=== PATIENT | male | born 1955 | race Hispanic/Latino ===

== ENCOUNTER 2023-02-24 10:45 | Emergency (ER) | payer MEDICARE ==
--- NOTE | 2023-02-24 11:46 | RAD REPORT ---
EXAM DESCRIPTION: RAD - Ankle Left 3 View - 02/24/2023 11:15 am CLINICAL HISTORY: SWELLING COMPARISON: No comparisons TECHNIQUE: Left ankle, 3 views. FINDINGS: No fracture, dislocation or periosteal reaction. No joint effusion seen. Small calcaneal s pur. Vascular calcifications. No joint space narrowing. Linear densities along the plantar aspect of the hindfoot, may relate to mineralization along the plantar aponeurosis or deep muscles of the foot. . IMPRESSION: No acute osseous abnormality. Chronic findings as above.
--- NOTE | 2023-02-24 12:09 | ER ---
Nurse's Notes [facility] Name: Cristopher Mccann Age: 67 yrs Sex: Male : 1955 Arrival Date: 02/24/2023 Time: 10:45 Bed 5 Private MD: Diagnosis: Gout, unspecified Presentation: 02/24 10:53 Chief complaint: Patient states: Left ankle pain since Tuesday morning, getting worse. nj1 Denies injury. Able to put weight on it but painful. Has tried advil on Tuesday with no relief. Call PCP, has appointment tomorrow. Coronavirus screen: Vaccine status: Patient reports receiving the 2nd dose of the covid vaccine. Ebola Screen: Patient denies travel to an Ebola-affected area in the 21 days before illness onset. Initial Sepsis Screen: Does the patient meet any 2 criteria? No. Patient's initial sepsis screen is negative. Does the patient have a suspected source of infection? No. Patient's initial sepsis screen is negative. Risk Assessment: Do you want to hurt yourself or someone else? Patient reports no desire to harm self or others. Onset of symptoms was February 21, 2023. 10:53 Method Of Arrival: Ambulatory [facility] [place] 10:53 Acuity: IRINA 3 nj1 Historical: - Allergies: 10:56 No Known Allergies; nj1 - Home Meds: 14:53 tamsulosin 0.4 mg oral capsule 1 cap daily [Active]; tacrolimus 1 mg oral capsule 1 cap nj1 every 12 hours [Active]; gabapentin 600 mg oral tablet 1 tab every 8 hours [Active]; desvenlafaxine 100 mg oral Tablet, Extended Release 24 hr 1 tab daily [Active]; aspirin 81 mg Oral tablet, delayed release (enteric coated) 1 tab daily [Active]; nifedipine 60 mg Oral tablet, extended release 1 tab daily [Active]; - PMHx: 10:56 depressive disorder; Hypertensive disorder; nj1 - PSHx: 10:56 liver transplant; nj1 - Immunization history:: Client reports receiving the 2nd dose of the Covid vaccine. - Social history:: Smoking status: Patient reports the use of cigarette tobacco products, smokes one-half pack cigarettes per day. Screenin:15 [facility] ED Fall Risk Assessment (Adult) History of falling in the last 3 months, ko1 including since admission No falls in past 3 months (0 pts) Confusion or Disorientation No (0 pts) Intoxicated or Sedated No (0 pts) Impaired Gait No (0 pts) Mobility Assist Device Used No (0 pt) Altered Elimination No (0 pt) Score/Fall Risk Level 0 - 2 = Low Risk Oriented to surroundings, Maintained a safe environment, Educated pt \T\ family on fall prevention, incl call for assistance when getting out of bed, Assessed \T\ reinforced patient's understanding of fall precautions, Provided non-skid footwear, Hourly rounding (assess needs \T\ fall precautionary measures) done, Used ambulatory aids as needed (educated on \T\ assisted with), Used gait belt as appropriate. Abuse screen: Denies threats or abuse. Denies injuries from another. Nutritional screening: No deficits noted. Tuberculosis screening: No symptoms or risk factors identified. Assessment: 11:05 General: Appears in no apparent distress. Behavior is calm, cooperative, appropriate ko1 for age. Pain: Pain: Complains of pain in left ankle. 11:15 Musculoskeletal: Reports pain in left ankle. ko1 Vital Signs: 10:53 BP 120 / 77; Pulse 86; Resp 16; Temp 98.1(O); Pulse Ox 100% ; Weight 86.18 kg; Height 5 nj1 ft. 6 in. ; Pain 10/10; 11:12 BP 134 / 85; Pulse 82; Resp 18; Temp 98.2; Pulse Ox 100% ; Weight 83.91 kg; Height 5 ls5 ft. 6 in. ; Pain 10/10; 12:08 BP 130 / 82; Pulse 78; Resp 15; Pulse Ox 99% ; ko1 11:12 Body Mass Index 29.86 (83.91 kg, 167.64 cm) ls5 10:53 Pain Scale: Adult nj1 11:12 Pain Scale: Adult ls5 ED Course: 10:48 Patient arrived in ED. mg5 10:50 Miguel Gonzales MD is Attending Physician. ec2 10:56 Triage completed. nj1 11:00 Arm band placed on right wrist. nj1 11:07 Ciera Harrell, TAMERA is Primary Nurse. ko1 11:15 Patient has correct armband on for positive identification. Bed in low position. Call ko1 light in reach. Provided Education on: na. Pulse ox on. NIBP on. Door closed. Noise minimized. Warm blanket given. 11:17 Ankle Left 3 View XRAY In Process Unspecified. EDMS 12:08 No provider procedures requiring assistance completed. Patient did not have IV access ko1 during this emergency room visit. Administered Medications: No medications were administered Medication: 12:08 VIS not applicable for this client. ko1 Outcome: 12:08 Discharge ordered by . ec2 12:17 Discharged to home via wheelchair, ko1 12:17 Condition: stable 12:17 Discharge instructions given to patient, Instructed on discharge instructions, follow up and referral plans. medication usage, Demonstrated understanding of instructions, follow-up care, medications, Prescriptions given X 1, 12:17 Patient left the ED. ko1 Signatures: Dispatcher [employer] EDCiera Calvert RN RN ko1 Anthony Das ls5 Charisse Mcguire RN RN nj1 Anna Mackay mg5 Miguel Gonzales MD MD ec2 Corrections: (The following items were deleted from the chart) 11:15 11:05 Pain: ko1 ko1
--- NOTE | 2023-02-24 12:09 | EDPHYS ---
Physician Documentation [facility] Name: Cristopher Mccann Age: 67 yrs Sex: Male : 1955 Arrival Date: 02/24/2023 Time: 10:45 Bed 5 Private MD: ED Physician Miguel Gonzales HPI: 02/24 11:05 This 67 yrs old Male presents to ER via Ambulatory with complaints of Ankle ec2 Swelling. 11:05 Patient arrives today for evaluation of left of ankle pain. States that he is having ec2 swelling and pain ongoing for the past 4 to 5 days. States that he has no fevers or chills, no nausea or vomiting, no falls or injuries or trauma. States he has had previous similar symptoms in the past, states that it has been in the left ankle in the past as well as the right ankle as well as other areas. Patient reports he has never been diagnosed with any specific problems, states that they typically resolve on its own. States he has been taking some Advil with some improvement in his symptoms.. Historical: - Allergies: 10:56 No Known Allergies; nj1 - Home Meds: 14:53 tamsulosin 0.4 mg oral capsule 1 cap daily [Active]; tacrolimus 1 mg oral capsule 1 cap nj1 every 12 hours [Active]; gabapentin 600 mg oral tablet 1 tab every 8 hours [Active]; desvenlafaxine 100 mg oral Tablet, Extended Release 24 hr 1 tab daily [Active]; aspirin 81 mg Oral tablet, delayed release (enteric coated) 1 tab daily [Active]; nifedipine 60 mg Oral tablet, extended release 1 tab daily [Active]; - PMHx: 10:56 depressive disorder; Hypertensive disorder; nj1 - PSHx: 10:56 liver transplant; nj1 - Immunization history:: Client reports receiving the 2nd dose of the Covid vaccine. - Social history:: Smoking status: Patient reports the use of cigarette tobacco products, smokes one-half pack cigarettes per day. ROS: 11:05 Constitutional: as per hpi ec2 Exam: 11:05 Constitutional: GEN: NAD Head: atraumatic Eyes: EOMI Ears: External ears are ec2 normal. CV: regular rate LUNGS: no respiratory distress ABD: non-distended SKIN: no evidence of rashes MSK: Left ankle with trace effusion noted, no erythema, no warmth, pain with range of motion, intact distal neurovascular status noted. No calf swelling. NEURO: moves all extremities equally Vital Signs: 10:53 BP 120 / 77; Pulse 86; Resp 16; Temp 98.1(O); Pulse Ox 100% ; Weight 86.18 kg; Height 5 nj1 ft. 6 in. ; Pain 10/10; 11:12 BP 134 / 85; Pulse 82; Resp 18; Temp 98.2; Pulse Ox 100% ; Weight 83.91 kg; Height 5 ls5 ft. 6 in. ; Pain 10/10; 12:08 BP 130 / 82; Pulse 78; Resp 15; Pulse Ox 99% ; ko1 11:12 Body Mass Index 29.86 (83.91 kg, 167.64 cm) ls5 10:53 Pain Scale: Adult nj1 11:12 Pain Scale: Adult ls5 MDM: 11:05 Patient medically screened. ec2 11:05 Data reviewed: vital signs. ED course: Patient arrives today for left ankle pain and ec2 swelling. Examination remarkable for ankle findings as noted above. Will obtain an x-ray to further assess the patient's complaint. Currently considering process such as malignancy, bony injury such as fracture, low suspicion for DVT given localized symptoms, additionally considering gout/arthritis Which I have a higher clinical index of suspicion for. . 12:03 ED course: Ankle x-ray shows no acute process. Will treat presumptively for gout, I do ec2 not feel there is a large enough effusion to tap. Patient without systemic symptoms, low index suspicion for septic joint. . 02/24 11:05 Order name: Ankle Left 3 View XRAY; Complete Time: 12:02 ec2 Administered Medications: No medications were administered Disposition Summary: 02/24/23 12:08 Discharge Ordered Notes: Location: Home ec2 Condition: Stable ec2 Diagnosis - Gout, unspecified ec2 Followup: ec2 - With: Private Physician - When: - Reason: Recheck today's complaints, Re-evaluation by your physician Discharge Instructions: - Discharge Summary Sheet ec2 - Gout, [id number] ec2 Forms: - Medication Reconciliation Form ec2 - Thank You Letter ec2 - Antibiotic Education ec2 - Prescription Opioid Use ec2 - Patient Portal Instructions ec2 - Leadership Thank You Letter ec2 Prescriptions: - indomethacin 50 mg Oral capsule - take 1 capsule ORAL route 3 times per day for 5 days administer with food or ec2 milk; 15 capsule; Refills: 0, Product Selection Permitted Signatures: Dispatcher [employer] Charisse Hernandez RN RN nj1 Miguel Gonzales MD MD ec2
[2023-02-24 12:30] VITALS: BP 130/82; TEMP 98.2; O2SAT 99
== END 2023-02-24 12:17 | disposition home or self-care (01) ==
LOC: ER 10:45
DX: M10.9 Gout, unspecified (principal)
CPT/HCPCS: 99283

== ENCOUNTER 2024-07-13 11:29 | Emergency (ER) | payer MEDICARE ==
[2024-07-13] MEDS ORDERED: TDAP (DIPHTH,PERTUSS(ACELL),TET VAC) 0.5 ML VIAL IMVAC ONE (11:54)
[2024-07-13] MEDS ORDERED: MORPHINE 4 MG/ML SYR ONE (11:54)
[2024-07-13] MEDS ORDERED: ONDANSETRON 4 MG/2 ML VIAL ONE ×2 (11:55→13:04)
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
[2024-07-13] MEDS ORDERED: LIDOCAINE 1% 20 ML MDV ONE (13:02)
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
[2024-07-13 15:33] VITALS: TEMP 98.2
[2024-07-13 15:37] VITALS: BP 126/64; O2SAT 99
== END 2024-07-13 14:33 | disposition home or self-care (01) ==
LOC: ER 11:29
DX: S91.312A Laceration without foreign body, left foot, initial encounter (principal); S93.412A Sprain of calcaneofibular ligament of left ankle, initial encounter; Z23 Encounter for immunization
CPT/HCPCS: 71045; 73502; 73620; 73600; 90715; 96375; 96372; 96374; 99285; 12002; J2003; J2405 ×2